=== PATIENT | female | born 1970 | race Caucasian/White ===

== ENCOUNTER 2020-08-02 10:44 | Emergency (ER) | payer MEDICAID ==
[~2020-08-02] VITALS: Ht 170.2 cm; Wt 74.8 kg
[~2020-08-02 10:44] MED LIST: ASCO500T11 PO; CLIN300C8 PO; FER325T PO; IBUP400T21 PO; MULTTAB99 PO
[2020-08-02 12:12] LABS: Basophils # (auto) 0.1 10 ^3/uL (0-0.2); Eosinophils # (auto) 0.1 10 ^3/uL (0-0.8); Eosinophils % (auto) 1.4 % (0.0-7.0); Lymphocytes # (auto) 1.6 10 ^3/uL (0.4-5.4); Nucleated Red Blood Cells % 0.1 %
[2020-08-02 12:15] LABS: Basophils % (auto) 1.2 % (0.0-2.0); Hematocrit 32.9 % (36.0-46.0); Lymphocytes % (auto) 26.1 % (10.0-50.0); Mean Corpuscular Hgb Conc. 30.4 g/dL (32.0-36.0); Mean Corpuscular Volume 69.1 fL (80.0-100.0); Monocytes # (auto) 0.4 10 ^3/uL (0-1.3); Neutrophils % (auto) 65.3 % (37.0-80.0); Platelet Count (auto) 475 10^3/uL (140-450); Red Blood Cells 4.76 10^6/uL (4.0-5.20); White Blood Cell 6.1 10^3/uL (4.4-10.8)
[2020-08-02 12:23] LABS: Red Cell Distribution Width 20.7 % (11.8-14.3)
[2020-08-02 13:14] LABS: Albumin 3.2 g/dL (3.4-5.0); BUN/Creatinine Ratio 14.3; Bilirubin, Total 0.2 mg/dL (0.2-1.0); Potassium 3.9 mmol/L (3.5-5.1); Total Protein 7.4 g/dL (6.4-8.2)
[2020-08-02 13:58] VITALS: BP 109/50
== END 2020-08-02 14:02 | disposition home or self-care (01) ==
LOC: ER 10:44
DX: L03.116 Cellulitis of left lower limb (principal); L03.115 Cellulitis of right lower limb; F17.210 Nicotine dependence, cigarettes, uncomplicated; F12.10 Cannabis abuse, uncomplicated; F15.10 Other stimulant abuse, uncomplicated; Z59.0 Homelessness; Z90.49 Acquired absence of other specified parts of digestive tract
CPT/HCPCS: 36415; 80053; 83605; 85025; 87040; 93970

== ENCOUNTER 2020-10-29 22:07 | Emergency (ER) | payer MEDICAID ==
[~2020-10-29] VITALS: Ht 175.3 cm; Wt 81.6 kg
[~2020-10-29 22:07] MED LIST changes: -IBUP400T21 PO; +IBUP400T22 PO
[2020-10-30 01:28] VITALS: BP 167/82
[2020-10-30] MEDS ORDERED: HYDROcodone-ACET 10/325MG TAB PO ONE (02:00)
[2020-10-30] MEDS ORDERED: cefTRIAXone SOD 1,000 MG VL IM ONE (02:00)
== END 2020-10-30 04:12 | disposition home or self-care (01) ==
LOC: ER 22:08
DX: S01.81XA Laceration without foreign body of other part of head, initial encounter (principal); F12.10 Cannabis abuse, uncomplicated; F17.210 Nicotine dependence, cigarettes, uncomplicated; Z90.49 Acquired absence of other specified parts of digestive tract; Z79.899 Other long term (current) drug therapy; Y08.89XA Assault by other specified means, initial encounter; Y93.89 Activity, other specified; Y92.89 Other specified places as the place of occurrence of the external cause; Y99.8 Other external cause status
CPT/HCPCS: 12013; 70450; 70486; 72125; 96372; 99285; J0696; J7030

== ENCOUNTER 2020-11-04 16:19 | Emergency (ER) | payer MEDICAID ==
[~2020-11-04] VITALS: Ht 170.2 cm; Wt 74.8 kg
[2020-11-04 16:19] VITALS: BP 133/64
== END 2020-11-04 19:59 | disposition home or self-care (01) ==
LOC: ER 16:19
DX: S05.32XD Ocular laceration without prolapse or loss of intraocular tissue, left eye, subsequent encounter (principal); F17.210 Nicotine dependence, cigarettes, uncomplicated; F12.10 Cannabis abuse, uncomplicated; Z90.49 Acquired absence of other specified parts of digestive tract; X58.XXXD Exposure to other specified factors, subsequent encounter

== ENCOUNTER 2021-12-04 03:38 | Emergency (ER) | payer MEDICAID ==
[~2021-12-04] VITALS: Ht 170.2 cm; Wt 72.6 kg
[2021-12-04 03:49] VITALS: BP 162/77
== END 2021-12-04 05:23 | disposition home or self-care (01) ==
LOC: ER 03:38
DX: F11.20 Opioid dependence, uncomplicated (principal); F17.210 Nicotine dependence, cigarettes, uncomplicated; F12.10 Cannabis abuse, uncomplicated; Z90.49 Acquired absence of other specified parts of digestive tract

== ENCOUNTER 2023-02-05 23:33 | Emergency (ER) | payer MEDICAID ==
[~2023-02-05] VITALS: Ht 170.2 cm; Wt 58.0 kg
[2023-02-06] MEDS ORDERED: cefTRIAXone SOD 1,000 MG VL IM ONE (00:30)
[2023-02-06] MEDS ORDERED: KETOROLAC TROMETH 30 MG/ML 1ML VIAL IM ONE (00:30)
[2023-02-06] MEDS ORDERED: ACE3T PO (00:39)
[2023-02-06] MEDS ORDERED: AMOX-277 PO (00:39)
[2023-02-06 02:31] VITALS: BP 161/82
== END 2023-02-06 02:38 | disposition home or self-care (01) ==
LOC: ER 23:33
DX: K04.7 Periapical abscess without sinus (principal); F12.10 Cannabis abuse, uncomplicated; F17.210 Nicotine dependence, cigarettes, uncomplicated; Z79.899 Other long term (current) drug therapy; Z90.49 Acquired absence of other specified parts of digestive tract
CPT/HCPCS: 96372

== ENCOUNTER 2024-05-28 12:29 | Inpatient (IN) | payer MEDICAID ==
[~2024-05-28] VITALS: Ht 167.6 cm; Wt 75.0 kg
[~2024-05-28 12:29] MED LIST changes: +ACE3T PO; +AMOX875T4 PO; +CLIN1CAP70 PO; -CLIN300C8 PO; +IBUP-1453 PO; -IBUP400T22 PO
[2024-05-28] MEDS: SODIUM CHLORIDE 0.9% 1,000 ML IV ONE (12:45)
[2024-05-28 14:02] LABS: Basophils # (auto) 0 10 ^3/uL (0-0.2); Basophils % (auto) 0.2 % (0.0-2.0); Eosinophils # (auto) 0 10 ^3/uL (0-0.8); Eosinophils % (auto) 0.1 % (0.0-7.0); Hematocrit 24.5 % (36.0-46.0); Lymphocytes # (auto) 0.7 10 ^3/uL (0.4-5.4); Lymphocytes % (auto) 4.4 % (10.0-50.0); Mean Corpuscular Hgb Conc. 28.3 g/dL (32.0-36.0); Mean Corpuscular Volume 74.1 fL (80.0-100.0); Monocytes # (auto) 0.6 10 ^3/uL (0-1.3); Monocytes % (auto) 4.4 % (0.0-12.0); Neutrophils # (auto) 13.4 10 ^3/uL (1.6-8.6); Neutrophils % (auto) 90.9 % (37.0-80.0); Nucleated Red Blood Cells % 0.1 %; Platelet Count (auto) 346 10^3/uL (140-450); Red Blood Cells 3.31 10^6/uL (4.0-5.20); Red Cell Distribution Width 16.7 % (11.8-14.3); White Blood Cell 14.7 10^3/uL (4.4-10.8)
[2024-05-28 14:03] LABS: Hemoglobin 6.9 g/dL (12.2-16.2)
[2024-05-28 14:18] LABS: Platelet Estimate Adequate
[2024-05-28 14:19] LABS: Hypochromia Slight; Ovalocytes FEW
[2024-05-28 14:21] LABS: Alanine Aminotransferase 78 U/L (7-40); Alkaline Phosphatase 181 U/L (46-116); Anion Gap 7 (5-15); Aspartate Aminotransferase 191 U/L (13-40); BUN/Creatinine Ratio 24.7 (10.0-20.0); Blood Urea Nitrogen 19 mg/dL (9-23); Calcium 9.4 mg/dL (8.7-10.4); Carbon Dioxide 28 mmol/L (20-30); Chloride 100 mmol/L (98-107); Glucose 115 mg/dL (74-106); Potassium 3.9 mmol/L (3.5-5.1); Sodium 135 mmol/L (136-145)
[2024-05-28 14:22] LABS: Total Protein 6.2 g/dL (5.7-8.2)
[2024-05-28 14:29] LABS: Bilirubin, Total 0.5 mg/dL (0.2-1.0)
[2024-05-28] MEDS: cefTRIAXone 1GM/50ML D5W 50 ML IV ONE (16:00)
[2024-05-28] MEDS: PANTOPRAZOLE 40 MG/10 ML VIAL INJ IV ONE (16:00)
[2024-05-28 18:19] LABS: Amphetamine Screen, Urine Pos (NEGATIVE); Barbiturate Scree,Urine Neg (NEGATIVE); Benzodiazephine Screen, Urine Neg (NEGATIVE); Cannabinoid Screen, Urine Pos (NEGATIVE); Cocaine Screen, Urine Neg (NEGATIVE); Opiate Scree,Urine Neg (NEGATIVE); Phencyclidine Screen, Urine Neg (NEGATIVE)
[2024-05-28] MEDS ORDERED: DOCUSATE SOD 100 MG CAP PO PRN (18:30)
[2024-05-28] MEDS ORDERED: ACETAMINOPHEN 325 MG TAB PO PRN (18:30)
[2024-05-28] MEDS ORDERED: MORPHINE SULFATE INJ 2 MG/ml SYRG IV PRN (18:30)
[2024-05-28] MEDS ORDERED: HYDROcodone-ACET 5/325MG TAB PO PRN (18:30)
[2024-05-28] MEDS: SODIUM CHLORIDE 0.9% 1,000 ML IV SCH (18:30)
[2024-05-28] MEDS ORDERED: NITROGLYCERIN 0.4 MG SL TAB SL PRN (18:30)
[2024-05-28 19:44] LABS: % Iron Saturation 1.9 % (15-50)
[2024-05-28 22:40] VITALS: BP 90/45; PULSE 92; RESP 12; TEMP 98.5
[2024-05-28 23:00] VITALS: BP 83/51; PULSE 88; RESP 12; TEMP 98.6
[2024-05-29] MEDS: PIPERACILLIN-TAZOB 3.375GM 100 ML IV SCH (00:38)
[2024-05-29 01:27] VITALS: BP 90/46; PULSE 84; RESP 12; TEMP 98.2
[2024-05-29 03:00] VITALS: BP 91/51; PULSE 77; RESP 11; TEMP 97.9
[2024-05-29 03:20] VITALS: BP 95/52; PULSE 72; RESP 12; TEMP 97.9
[2024-05-29 05:20] VITALS: BP 90/49; PULSE 72; RESP 14; TEMP 98.6
[2024-05-29 11:00] VITALS: PULSE 77; RESP 21; O2SAT 93
[2024-05-29] MEDS: ONDANSETRON HCL 4 MG/2 ML VIAL IV PRN (12:59)
[2024-05-29] MEDS: MORPHINE SULFATE INJ 2 MG/ml SYRG IV PRN (13:02)
[2024-05-29 16:13] LABS: Basophils # (auto) 0.1 10 ^3/uL (0-0.2); Basophils % (auto) 0.6 % (0.0-2.0); Eosinophils # (auto) 0.1 10 ^3/uL (0-0.8); Eosinophils % (auto) 0.6 % (0.0-7.0); Hematocrit 29.7 % (36.0-46.0); Hemoglobin 9.2 g/dL (12.2-16.2); Lymphocytes # (auto) 1.3 10 ^3/uL (0.4-5.4); Mean Corpuscular Hemoglobin 23.7 pg (28.0-32.0); Mean Corpuscular Volume 76.6 fL (80.0-100.0); Monocytes # (auto) 0.6 10 ^3/uL (0-1.3); Monocytes % (auto) 6.4 % (0.0-12.0); Neutrophils # (auto) 7.9 10 ^3/uL (1.6-8.6); Neutrophils % (auto) 79.4 % (37.0-80.0); Nucleated Red Blood Cells % 0.1 %; Platelet Count (auto) 362 10^3/uL (140-450); Red Blood Cells 3.87 10^6/uL (4.0-5.20)
[2024-05-29] MEDS: PANTOPRAZOLE 40 MG TAB PO SCH (18:59)
[2024-05-29] MEDS: CALCIUM CARB 500 MG CHEW TAB PO ONE (21:50)
[2024-05-29 22:30] VITALS: PULSE 66; RESP 16; O2SAT 98
[2024-05-30 09:14] LABS: Alanine Aminotransferase 47 U/L (7-40); Alkaline Phosphatase 120 U/L (46-116); Anion Gap 5 (5-15); Aspartate Aminotransferase 68 U/L (13-40); BUN/Creatinine Ratio 13.5 (10.0-20.0); Calcium 8.6 mg/dL (8.7-10.4); Carbon Dioxide 28 mmol/L (20-30); Chloride 103 mmol/L (98-107); Glucose 85 mg/dL (74-106); Magnesium 1.8 mg/dL (1.6-2.6); Potassium 3.9 mmol/L (3.5-5.1); Sodium 136 mmol/L (136-145)
[2024-05-30 09:15] LABS: Bilirubin, Total 0.5 mg/dL (0.2-1.0)
[2024-05-30 09:20] LABS: Blood Urea Nitrogen 7 mg/dL (9-23)
[2024-05-30 11:07] LABS: Basophils # (auto) 0 10 ^3/uL (0-0.2); Basophils % (auto) 0.5 % (0.0-2.0); Eosinophils # (auto) 0.1 10 ^3/uL (0-0.8); Eosinophils % (auto) 0.6 % (0.0-7.0); Hematocrit 29.3 % (36.0-46.0); Hemoglobin 9.1 g/dL (12.2-16.2); Lymphocytes # (auto) 0.6 10 ^3/uL (0.4-5.4); Lymphocytes % (auto) 7.3 % (10.0-50.0); Mean Corpuscular Hgb Conc. 31.2 g/dL (32.0-36.0); Mean Corpuscular Volume 76.9 fL (80.0-100.0); Monocytes # (auto) 0.3 10 ^3/uL (0-1.3); Neutrophils # (auto) 7.7 10 ^3/uL (1.6-8.6); Neutrophils % (auto) 88.6 % (37.0-80.0); Nucleated Red Blood Cells % 0.1 %; Platelet Count (auto) 379 10^3/uL (140-450); Red Blood Cells 3.81 10^6/uL (4.0-5.20); Red Cell Distribution Width 19.9 % (11.8-14.3); White Blood Cell 8.7 10^3/uL (4.4-10.8)
[2024-05-30 14:16] VITALS: TEMP 98
[2024-05-30 16:04] VITALS: BP 91/59; PULSE 61; RESP 16; O2SAT 100
[2024-05-30] MEDS ORDERED: AUG875T PO (16:13)
== END 2024-05-30 16:55 | disposition home or self-care (01) | DRG 812 ==
LOC: ER 12:29 → EDBD 12:29 → TELE 18:35
PROVIDERS: ADMIT Internal Medicine; ATTEND Internal Medicine
PROC: 30233N1 Transfusion of Nonautologous Red Blood Cells into Peripheral Vein, Percutaneous Approach (ICD-10-PCS; principal; 2024-05-28)
DX: T50.991A Poisoning by other drugs, medicaments and biological substances, accidental (unintentional), initial encounter (principal); J69.0 Pneumonitis due to inhalation of food and vomit; D50.9 Iron deficiency anemia, unspecified; F11.20 Opioid dependence, uncomplicated; F12.10 Cannabis abuse, uncomplicated; F17.210 Nicotine dependence, cigarettes, uncomplicated; K21.9 Gastro-esophageal reflux disease without esophagitis; Z98.84 Bariatric surgery status; Z90.49 Acquired absence of other specified parts of digestive tract; Y92.89 Other specified places as the place of occurrence of the external cause
CPT/HCPCS: 36415; 70450; 70551; 71045; 80053; 80307; 83540; 83550; 83735; 84484; 85025; 86850; 86900; 86901; 86920; 93005; 96361; 96365; 96375; G0378; J2405; J2470; J2543